=== PATIENT | female | born 1935 | race Caucasian/White ===

== ENCOUNTER → 2017-01-12 | Outpatient (CLI) | payer MEDICARE, BC ==
[~2017-01-12] MED LIST: ACETAMINOPHEN650 M1 PO; ACTOS PO; ACTOS15 MG PO; ALPRAZOLAM0.25 MG PO; ASPIRIN PO; ATENOLOL PO; ATENOLOL25 MG PO; BAYER ASPIRIN325 M1 PO; CO Q-10200 MG PO; COQ-1010 MG; COQ-10200 MG PO; D3 DOTS2000 UNIT; ECOTRIN325 MG PO; FLEXERIL PO; HUMULIN 70/30 V10 ML SUBQ; IMMODIUM1 MG/5 M1 PO; LEVOTHYROXINE50 MC1 PO; LEVOXYL50 MCG; LEVOXYL50 MCG PO; LIPITOR PO; LIPITOR40 MG PO; LOMOTIL WHITE2.5 MG PO; MULTI-VITAMIN1 TAB PO; NEURONTIN PO; NEURONTIN600 MG PO; NOVALIN 70/30 SUBQ; NOVOLIN 70100 UNITS/ SQ; PHENERGAN PO; PREVACID PO; PRILOSEC PO; PRILOSEC20 M1; PRILOSEC20 MG PO; SYNTHROID PO; TOPROL XL PO; TRAMADOL HCL50 M1 PO; TRAMADOL HCL50 M2 PO; VITAMIN B12-FO1 EACH PO; VITAMIN C PO; VITAMIN C500 M1 PO; VITAMIN C500 M2; VITAMIN C500 M5 PO; VITAMIN D-32000 UNI2 PO; VITAMIN D32000 UNI1 PO
--- NOTE | ~2017-01-12 | US116 ---
[facility] A Service of [facility] RADIOLOGY TEXT RESULTS PATIENT: LISA DOVER LOCATION: [facility] : 33 UNIT #: [id number] AGE: [address]: Kris West MD SEX: F ORDER DR: [id number] [facility]. [place], [place] [address] [id number] O MR#: [id number] Acc #: [id number] NAME: LISA DOVER : 1935 SEX: F STUDY DATE/TIME: 01/12/2017 10:04 UNIT: [facility] ROOM: STUDY DESCRIPTION: US Soft Tissue Head/Neck Attending Physician: Kris West M.D. Referring Physician: Kris West M.D. Ordering Physician: Kris West M.D. Primary Care Physician: Kris West M.D. MEDICAL IMAGING REPORT This report is preliminary unless electronic signature is present EXAM Ultrasound neck soft tissue INDICATION Submandibular lumps bilaterally. Patient has palpated them for a year. Apparently these wax and wane. TECHNIQUE Medina-scale and color Doppler sonographic images were obtained through the areas of concern. FINDINGS No suspicious masses are seen within the areas of concern. Submandibular glands appear homogeneous in echotexture and I suspect some intermittent swelling of submandibular gland may be accounting for this patient's symptomatology. She is noted to have some plaque within the left common carotid artery. No fluid collections are seen. IMPRESSION 1. No abnormality is seen within the area of concern. Patient's submandibular glands are identified and appear to be homogeneous in echotexture, potentially intermittent swelling these glands could be accounting for the patient's symptomatology. 2. The patient does have some plaque within the right common carotid artery. Dictated by... Jailene Joaquin M.D. THIS IS AN ELECTRONICALLY VERIFIED REPORT Jailene Joaquin M.D. at 01/15/2017 5:03 PM [facility] A Service of [facility] RADIOLOGY TEXT RESULTS PATIENT: LISA DOVER LOCATION: [facility] : 34 UNIT #: [id number] AGE: [address]: Kris West MD SEX: F ORDER DR: AMINATA/liv TD: 01/15/2017 10:59 JOB #: [id number] MEDICAL IMAGING REPORT Page 1 of 1 COPY
== END | disposition home or self-care (01) ==
LOC: CWCC 09:45
DX: R22.1 Localized swelling, mass and lump, neck (principal); I65.21 Occlusion and stenosis of right carotid artery
CPT/HCPCS: 76536